=== PATIENT | female | born 1935 | race Hispanic/Latino ===

== ENCOUNTER 2018-08-09 16:35 | Emergency (ER) | payer MEDICARE ==
[2018-08-09 16:41] VITALS: TEMP 97.8
[2018-08-09] MEDS ORDERED: Silver Sulfadiazine 1% CREAM (50 gm) TOP STA (16:51)
--- NOTE | 2018-08-09 16:59 | ED PDOC ---
HPI: Skin/Bite Injury Time Seen by Provider: 08/09/18 16:41 Chief Complaint (Nursing): Abnormal Skin Integrity Chief Complaint (Provider): Burn, anterior upper chest History Per: Patient History/Exam Limitations: no limitations Onset/Duration Of Symptoms: Days Current Symptoms Are (Timing): Still Present Additional Complaint(s): 83 yo female presents for evaluation of burn on the upper chest wall 3 days ago. Pt states that she was cooking chicken and oil splashed on her. Pts was in ER for evaluation and patient advised to be seen for evaluation of burn. PT denies pain. Pt states there was a little blister in the center which popped. Past Medical History Reviewed: Historical Data, Nursing Documentation, Vital Signs Vital Signs: Last Vital Signs Temp 97.8 F 08/09/18 16:38 Pulse 84 08/09/18 16:38 Resp 16 08/09/18 16:38 BP 190/80 H 08/09/18 16:38 Pulse Ox 100 08/09/18 16:38 - Medical History PMH: Emphysema, Gastritis, HTN - Surgical History Surgical History: No Surg Hx - Family History Family History: States: Unknown Family Hx - Living Arrangements Living Arrangements: With Family - Social History Current smoker - smoking cessation education provided: No - Immunization History Hx Tetanus Toxoid Vaccination: No Hx Influenza Vaccination: No Hx Pneumococcal Vaccination: No - Home Medications Home Medications: Ambulatory Orders Medication Instructions Recorded Acetaminophen with Codeine 1 tab PO Q6H PRN #10 tab 05/25/16 [Tylenol with Codeine No. 3 300 mg-30 mg] Ibuprofen [Motrin] 600 mg PO Q6H PRN #20 tab 05/25/16 Silver Sulfadiazine 1% 20 gm 1 ea TOP BID #2 tube 08/09/18 [Silvadene] - Allergies Allergies/Adverse Reactions: Allergies Allergy/AdvReac Type Severity Reaction Status Date / Time albuterol Allergy URTICARIA Verified 05/25/16 13:37 Review of Systems ROS Statement: Except As Marked, All Systems Reviewed And Found Negative Constitutional: Negative for: Fever, Chills Skin: Positive for: Rash Physical Exam - Reviewed Nursing Documentation Reviewed: Yes Vital Signs Reviewed: Yes - Physical Exam Appears: Positive for: Well, Non-toxic, No Acute Distress Head Exam: Positive for: ATRAUMATIC, NORMAL INSPECTION, NORMOCEPHALIC Skin: Positive for: Normal Color, Warm, DRY Eye Exam: Positive for: Normal appearance ENT: Positive for: Normal ENT Inspection Neck: Positive for: Normal Cardiovascular/Chest: Negative for: Bradycardia, Tachycardia Respiratory: Negative for: Accessory Muscle Use, Respiratory Distress Back: Positive for: Normal Inspection Extremity: Positive for: Normal ROM Neurologic/Psych: Positive for: Alert, Oriented - ECG O2 Sat by Pulse Oximetry: 100 Pulse Ox Interpretation: Normal Medical Decision Making Medical Decision Making: Silvadene applied with telfa. Disposition - Clinical Impression Clinical Impression: Second degree burn - Patient ED Disposition Is Patient to be Admitted: No Counseled Patient/Family Regarding: Diagnosis, Need For Followup, Rx Given - Disposition Referrals: [facility] [Outside] Disposition: Routine/Home Disposition Time: 16:55 Condition: STABLE Prescriptions: Silver Sulfadiazine 1% 20 gm [Silvadene] 1 ea TOP BID #2 tube Instructions: Skin Vazquez (DC) Forms: [facility] (Tristanian)
[2018-08-09 17:58] VITALS: BP 150/78; PULSE 70; RESP 18; O2SAT 99
== END 2018-08-09 17:44 | disposition home or self-care (01) ==
LOC: H.ER 16:35
DX: T21.21XA Burn of second degree of chest wall, initial encounter (principal); Y93.G3 Activity, cooking and baking; Y92.000 Kitchen of unspecified non-institutional (private) residence as the place of occurrence of the external cause; I10 Essential (primary) hypertension; J43.9 Emphysema, unspecified